=== PATIENT | female | born 1975 | race African-American/Black ===

== ENCOUNTER 2017-11-29 18:56 | Emergency (ER) | payer BC ==
[2017-11-29 19:22] LABS: BILIRUBIN,URINE NEGATIVE (NEG); CLARITY,URINE CLEAR; COLOR,URINE YELLOW; GLUCOSE,URINE NEGATIVE (NEG); NITRITE,URINE POSITIVE (NEG); PROTEIN,URINE NEGATIVE (NEG-TRACE); UROBILINOGEN,URINE 0.2 mg/dL (0.2 mg/dL)
[2017-11-29] MEDS: predniSONE 20 MG TABLET PO (19:23)
[2017-11-29] MEDS: CYCLOBENZAPRINE 10 MG TABLET. PO (19:24)
[2017-11-29] MEDS: HYDROcodone/APAP 5/325MG 1 TAB TABLET PO (19:24)
[2017-11-29] MEDS: NAPROXEN 500 MG TABLET PO (19:25)
[2017-11-29 19:31] LABS: BACTERIA,URINE MANY /HPF (0-FEW); RBC,URINE 0 /HPF (0-2); SQUAMOUS EPITHELIAL CELL,UR MOD /LPF
== END 2017-11-29 19:58 | disposition home or self-care (01) ==
LOC: ER 18:56
DX: N39.0 Urinary tract infection, site not specified (principal); M79.1 Myalgia; Z88.0 Allergy status to penicillin
CPT/HCPCS: 81001; 99284; J7512